=== PATIENT | female | born 1980 | race Caucasian/White ===

== ENCOUNTER 2024-02-04 17:21 | Emergency (ER) | payer BC ==
[~2024-02-04] VITALS: Ht 165.1 cm; Wt 84.9 kg
[2024-02-04 17:41] VITALS: BP 105/69; PULSE 93; RESP 20; TEMP 97.8; O2SAT 96
[2024-02-04 18:37] LABS: BASOPHILS % (AUTO) 0.4 % (0.0-2.0); EOSINOPHILS # (AUTO) 0.1 K/uL (0-0.4); EOSINOPHILS % (AUTO) 1.5 % (0.0-4.0); HEMATOCRIT 43.4 % (36-48); HEMOGLOBIN 15.1 g/dL (12.0-16.0); LYMPHOCYTES % (AUTO) 29.6 % (20.5-51.1); MEAN CORPUSCULAR HEMOGLOBIN 31 pg (27-31); MEAN CORPUSCULAR HGB CONC 35 g/dL (33-37); MEAN CORPUSCULAR VOLUME 89.5 fL (80-94); MONOCYTES # (AUTO) 0.7 K/uL (0.8-1.0); MONOCYTES % (AUTO) 6.5 % (1.7-9.3); NEUTROPHILS # (AUTO) 6.3 K/uL (1.8-7.7); PLATELET COUNT (AUTO) 290 K/uL (140-450); RED BLOOD CELL COUNT(AUTO) 4.85 MIL/uL (4.20-5.40); RED CELL DISTRIBUTION WIDTH 13.1 % (11.6-13.7); WHITE BLOOD COUNT (AUTO) 10.1 K/uL (4.8-10.8)
[2024-02-04 18:52] LABS: ANION GAP 13.7 (8-16); CALCIUM 9.1 mg/dL (8.5-10.1); CREATININE 0.7 mg/dL (0.6-1.3); POTASSIUM 3.7 mmol/L (3.5-5.1)
[2024-02-04] MEDS: KETOROLAC 30 MG/ML VIAL IM ONE (20:03)
[2024-02-04] MEDS ORDERED: IBUP-2213 PO (20:18)
[2024-02-04 20:45] VITALS: BP 124/71; PULSE 79; RESP 18; O2SAT 95
== END 2024-02-04 20:40 | disposition home or self-care (01) ==
LOC: MED 17:21
DX: N92.0 Excessive and frequent menstruation with regular cycle (principal); N91.2 Amenorrhea, unspecified; E11.9 Type 2 diabetes mellitus without complications; Z79.899 Other long term (current) drug therapy
CPT/HCPCS: 36415; 76856; 80048; 81002; 81025; 85025; 99285